=== PATIENT | female | born 1990 | race Caucasian/White ===

== ENCOUNTER 2019-03-12 03:45 | Emergency (ER) | payer MEDICAID ==
[~2019-03-12] VITALS: Ht 172.7 cm; Wt 104.5 kg
[~2019-03-12 03:45] MED LIST: ARIP10TA15 PO; BUPR150T8 PO; CLON-527 PO; EFF37.5XRC PO
[2019-03-12] MEDS ORDERED: ondansetron/PF 4mg/2ml inj IV ONE (03:55)
[2019-03-12] MEDS ORDERED: pantoprazole 40 MG vial IV ONE (03:55)
[2019-03-12] MEDS ORDERED: famotidine/PF 10 mg/ml inj IV ONE (03:55)
[2019-03-12 04:11] LABS: CLARITY,URINE CLEAR (Clear); COLOR,URINE YELLOW (Yellow); GLUCOSE, URINE NEGATIVE (Neg); KETONES,URINE NEGATIVE (Neg); LEUKOCYTE ESTERASE ,URINE NEGATIVE (Neg); NITRITES, URINE NEGATIVE (Neg); OCCULT BLOOD,URINE NEGATIVE (Neg); PROTEIN,URINE NEGATIVE (Neg); URINE HCG NEGATIVE (NEG); UROBILINOGEN,URINE 0.2 E.U/dL (0.2-1.0)
[2019-03-12 04:13] LABS: UA COLLECTION TYPE CLN CATCH MIDSTREAM
[2019-03-12 04:29] LABS: BASOPHILS % (AUTO) 0.3 % (0-1); EOSINOPHILS # (AUTO) 0.2 X10'3 (0-0.9); EOSINOPHILS % (AUTO) 2.6 % (0-6); HEMATOCRIT 43.7 % (35.0-45.0); LYMPHOCYTES % (AUTO) 52.3 % (21-51); MEAN CORPUSCULAR HEMOGLOBIN 30.4 PG (27.0-31.0); MEAN CORPUSCULAR HGB CONC 34.3 g/dL (33.0-36.5); MEAN CORPUSCULAR VOLUME 88.5 FL (78-98); MEAN PLATELET VOLUME 7.7 FL (7.4-10.4); MONOCYTES # (AUTO) 0.6 X10'3 (0-0.9); MONOCYTES % (AUTO) 7.2 % (2-12); NEUTROPHILS # (AUTO) 2.9 X10'3 (1.8-7.7); NEUTROPHILS % (AUTO) 37.6 % (42-75); PLATELET COUNT 219 X10'3 (140-440); RED BLOOD COUNT 4.94 X10'6 (4.20-5.60); RED CELL DISTRIBUTION WIDTH 13.3 % (11.5-14.5); WHITE BLOOD COUNT 7.6 X10'3 (4.5-11.0)
[2019-03-12 04:31] LABS: ALANINE AMINOTRANSFERASE 35 U/L (12-78); ALBUMIN 3.5 G/DL (3.4-5.0); ALBUMIN/GLOBULIN RATIO 1.1 (1.1-1.5); ALKALINE PHOSPHATASE 69 IU/L (46-116); ANION GAP 8 (8-16); ASPARTATE AMINO TRANSFERASE 21 U/L (10-37); BILIRUBIN,TOTAL 0.2 MG/DL (0.1-1.0); BLOOD UREA NITROGEN 10 MG/DL (7-18); CALCIUM 8.7 MG/DL (8.5-10.1); CHLORIDE 104 MMOL/L (99-107); CREATININE 0.91 MG/DL (0.40-0.90); GLUCOSE 101 MG/DL (70-104); LIPASE 339 U/L (73-393); POTASSIUM 3.9 MMOL/L (3.5-5.1); SODIUM 139 MMOL/L (135-145); TOTAL PROTEIN 6.8 G/DL (6.4-8.2); eGFR 75 ML/MIN
[2019-03-12] MEDS ORDERED: OMEP20CA11 PO (04:39)
[2019-03-12] MEDS ORDERED: ONDA4TAB6 PO (04:39)
[2019-03-12 05:03] VITALS: BP 133/94
== END 2019-03-12 05:05 | disposition home or self-care (01) ==
LOC: ER 03:46
DX: R10.13 Epigastric pain (principal); F41.9 Anxiety disorder, unspecified; F32.9 Major depressive disorder, single episode, unspecified; F17.200 Nicotine dependence, unspecified, uncomplicated; F12.90 Cannabis use, unspecified, uncomplicated; Z98.890 Other specified postprocedural states; Z56.0 Unemployment, unspecified; Z79.899 Other long term (current) drug therapy
CPT/HCPCS: 36415; 80053; 81003; 81025; 83690; 85025; 96374; 96375; 99283; C9113; J2405; J3490

== ENCOUNTER 2019-11-01 11:15 | Emergency (ER) | payer MEDICAID ==
[~2019-11-01] VITALS: Ht 172.7 cm; Wt 102.3 kg
[~2019-11-01 11:15] MED LIST changes: +OMEP20CA15 PO; +ONDA4TAB6 PO
--- NOTE | 2019-11-01 11:54 | NUR ---
Patient up to bathroom at this time to obtain UA sample. Gait steady, balanced, no signs of distress noted.
[2019-11-01 12:22] LABS: BASOPHILS % (AUTO) 0.6 % (0-1); EOSINOPHILS # (AUTO) 0.1 X10'3 (0-0.9); EOSINOPHILS % (AUTO) 1.4 % (0-6); HEMATOCRIT 44.9 % (35.0-45.0); HEMOGLOBIN 15.3 g/dl (12.0-16.0); LYMPHOCYTES # (AUTO) 2.8 X10'3 (1.1-4.8); LYMPHOCYTES % (AUTO) 33.8 % (21-51); MEAN CORPUSCULAR HEMOGLOBIN 29.4 PG (27.0-31.0); MEAN CORPUSCULAR VOLUME 86.6 FL (78-98); MEAN PLATELET VOLUME 7.3 FL (7.4-10.4); MONOCYTES # (AUTO) 0.6 X10'3 (0-0.9); MONOCYTES % (AUTO) 7.2 % (2-12); NEUTROPHILS # (AUTO) 4.7 X10'3 (1.8-7.7); PLATELET COUNT 235 X10'3 (140-440); RED BLOOD COUNT 5.19 X10'6 (4.20-5.60); RED CELL DISTRIBUTION WIDTH 14.7 % (11.5-14.5); WHITE BLOOD COUNT 8.2 X10'3 (4.5-11.0)
[2019-11-01 12:26] LABS: CLARITY,URINE SLIGHTLY CLOUDY (Clear); COLOR,URINE YELLOW (Yellow); GLUCOSE, URINE NEGATIVE (Neg); KETONES,URINE NEGATIVE (Neg); LEUKOCYTE ESTERASE ,URINE NEGATIVE (Neg); NITRITES, URINE NEGATIVE (Neg); OCCULT BLOOD,URINE NEGATIVE (Neg); PROTEIN,URINE NEGATIVE (Neg); UROBILINOGEN,URINE 0.2 E.U/dL (0.2-1.0)
[2019-11-01 12:27] LABS: UA COLLECTION TYPE CLN CATCH MIDSTREAM; URINE HCG NEGATIVE (NEG)
[2019-11-01 12:36] LABS: HYALINE CASTS 0-3 /LPF (NEGATIVE); MUCUS STRANDS FEW /LPF (Neg); SQUAMOUS EPITHELIAL CELL,UR MODERATE /LPF (FEW)
[2019-11-01 12:36] LABS: ALANINE AMINOTRANSFERASE 28 U/L (12-78); ALBUMIN 3.8 G/DL (3.4-5.0); ALKALINE PHOSPHATASE 68 IU/L (46-116); ANION GAP 11 (8-16); ASPARTATE AMINO TRANSFERASE 19 U/L (10-37); BILIRUBIN,TOTAL 0.3 MG/DL (0.1-1.0); BLOOD UREA NITROGEN 10 MG/DL (7-18); BUN/CREATININE RATIO 9.8 (6.6-38.0); CALCIUM 9.3 MG/DL (8.5-10.1); CHLORIDE 106 MMOL/L (99-107); CREATININE 1.02 MG/DL (0.40-0.90); GLUCOSE 92 MG/DL (70-104); LIPASE 577 U/L (73-393); POTASSIUM 4.2 MMOL/L (3.5-5.1); SODIUM 141 MMOL/L (135-145); TOTAL PROTEIN 7.6 G/DL (6.4-8.2); eGFR 65 ML/MIN
[2019-11-01 12:37] LABS: BACTERIA,URINE 1+ /HPF (Neg); RBC,URINE 0-2 /HPF (0-2); WBC,URINE 0-4 /HPF (0-4)
[2019-11-01] MEDS ORDERED: ondansetron/PF 4mg/2ml inj IV ONE (12:45)
[2019-11-01] MEDS ORDERED: normal saline 1000ML IV soln IVB ONE (12:45)
[2019-11-01] MEDS ORDERED: proCHLORperazine 10 MG/2 ml inj IV ONE (12:55)
[2019-11-01] MEDS ORDERED: PROC-8 PO (13:37)
[2019-11-01 14:04] VITALS: BP 104/59
== END 2019-11-01 14:09 | disposition home or self-care (01) ==
LOC: ER 11:16
DX: R10.9 Unspecified abdominal pain (principal); R11.2 Nausea with vomiting, unspecified; R19.7 Diarrhea, unspecified; F41.9 Anxiety disorder, unspecified; F32.9 Major depressive disorder, single episode, unspecified; F12.90 Cannabis use, unspecified, uncomplicated; Z98.890 Other specified postprocedural states; Z56.0 Unemployment, unspecified; Z79.899 Other long term (current) drug therapy
CPT/HCPCS: 36415; 80053; 81001; 81025; 83690; 85025; 96361; 96374; 99285; J0780; J7030

== ENCOUNTER 2019-11-21 05:16 | Emergency (ER) | payer MEDICAID ==
[~2019-11-21] VITALS: Ht 172.7 cm; Wt 100.9 kg
[~2019-11-21 05:16] MED LIST changes: +PROC-8 PO
[2019-11-21] MEDS ORDERED: morphine 4 MG/ML inj SYRINge IV ONE (05:40)
[2019-11-21] MEDS ORDERED: ondansetron/PF 4mg/2ml inj IV ONE (05:40)
[2019-11-21] MEDS ORDERED: famotidine/PF 10 mg/ml inj IV ONE (05:40)
[2019-11-21 06:00] LABS: BASOPHILS # (AUTO) 0.1 X10'3 (0-0.2); BASOPHILS % (AUTO) 0.7 % (0-1); EOSINOPHILS # (AUTO) 0.2 X10'3 (0-0.9); EOSINOPHILS % (AUTO) 2.1 % (0-6); HEMATOCRIT 42.4 % (35.0-45.0); HEMOGLOBIN 14.4 g/dl (12.0-16.0); LYMPHOCYTES # (AUTO) 3.8 X10'3 (1.1-4.8); LYMPHOCYTES % (AUTO) 50.2 % (21-51); MEAN CORPUSCULAR HEMOGLOBIN 29.5 PG (27.0-31.0); MEAN CORPUSCULAR VOLUME 86.9 FL (78-98); MEAN PLATELET VOLUME 7.6 FL (7.4-10.4); MONOCYTES # (AUTO) 0.5 X10'3 (0-0.9); MONOCYTES % (AUTO) 7.3 % (2-12); NEUTROPHILS % (AUTO) 39.7 % (42-75); PLATELET COUNT 264 X10'3 (140-440); RED BLOOD COUNT 4.88 X10'6 (4.20-5.60); WHITE BLOOD COUNT 7.5 X10'3 (4.5-11.0)
[2019-11-21 06:18] LABS: ALANINE AMINOTRANSFERASE 32 U/L (12-78); ALBUMIN 3.5 G/DL (3.4-5.0); ALBUMIN/GLOBULIN RATIO 1.1 (1.1-1.5); ALKALINE PHOSPHATASE 55 IU/L (46-116); ANION GAP 9 (8-16); ASPARTATE AMINO TRANSFERASE 23 U/L (10-37); BILIRUBIN,TOTAL 0.2 MG/DL (0.1-1.0); BLOOD UREA NITROGEN 10 MG/DL (7-18); BUN/CREATININE RATIO 11.4 (6.6-38.0); CALCIUM 8.2 MG/DL (8.5-10.1); CHLORIDE 105 MMOL/L (99-107); CREATININE 0.88 MG/DL (0.40-0.90); LIPASE 542 U/L (73-393); SODIUM 138 MMOL/L (135-145); TOTAL PROTEIN 6.7 G/DL (6.4-8.2); eGFR 77 ML/MIN
[2019-11-21 06:22] LABS: GLUCOSE 133 MG/DL (70-104); POTASSIUM 3.8 MMOL/L (3.5-5.1)
[2019-11-21 06:47] LABS: URINE HCG NEGATIVE (NEG)
[2019-11-21 06:49] LABS: CLARITY,URINE CLEAR (Clear); COLOR,URINE YELLOW (Yellow); GLUCOSE, URINE NEGATIVE (Neg); KETONES,URINE NEGATIVE (Neg); LEUKOCYTE ESTERASE ,URINE NEGATIVE (Neg); NITRITES, URINE NEGATIVE (Neg); OCCULT BLOOD,URINE NEGATIVE (Neg); PH,URINE 5.5 (4.8-8.0); PROTEIN,URINE NEGATIVE (Neg); UROBILINOGEN,URINE 0.2 E.U/dL (0.2-1.0)
[2019-11-21 06:50] LABS: UA COLLECTION TYPE CLN CATCH MIDSTREAM
[2019-11-21 07:30] VITALS: BP 124/80
== END 2019-11-21 07:30 | disposition home or self-care (01) ==
LOC: ER 05:17
DX: K80.20 Calculus of gallbladder without cholecystitis without obstruction (principal); F41.9 Anxiety disorder, unspecified; F32.9 Major depressive disorder, single episode, unspecified; F12.90 Cannabis use, unspecified, uncomplicated; Z72.89 Other problems related to lifestyle; Z98.890 Other specified postprocedural states; Z56.0 Unemployment, unspecified; Z79.899 Other long term (current) drug therapy
CPT/HCPCS: 36415; 76700; 80053; 81003; 81025; 83690; 85025; 96374; 96375; 99284; J2270; J2405; J3490

== ENCOUNTER 2019-11-28 16:54 | Inpatient (IN) | payer MEDICAID ==
[~2019-11-28] VITALS: Ht 172.7 cm; Wt 107.0 kg
[2019-11-28 18:01] LABS: BASOPHILS % (AUTO) 0.3 % (0-1); EOSINOPHILS # (AUTO) 0.2 X10'3 (0-0.9); EOSINOPHILS % (AUTO) 1.6 % (0-6); HEMATOCRIT 43.2 % (35.0-45.0); HEMOGLOBIN 14.6 g/dl (12.0-16.0); LYMPHOCYTES % (AUTO) 28.3 % (21-51); MEAN CORPUSCULAR HEMOGLOBIN 28.9 PG (27.0-31.0); MEAN CORPUSCULAR HGB CONC 33.8 g/dL (33.0-36.5); MEAN CORPUSCULAR VOLUME 85.6 FL (78-98); MEAN PLATELET VOLUME 7.1 FL (7.4-10.4); MONOCYTES # (AUTO) 0.7 X10'3 (0-0.9); MONOCYTES % (AUTO) 6.8 % (2-12); NEUTROPHILS # (AUTO) 6.8 X10'3 (1.8-7.7); PLATELET COUNT 265 X10'3 (140-440); RED BLOOD COUNT 5.05 X10'6 (4.20-5.60); RED CELL DISTRIBUTION WIDTH 13.7 % (11.5-14.5); WHITE BLOOD COUNT 10.8 X10'3 (4.5-11.0)
[2019-11-28 18:20] LABS: ALANINE AMINOTRANSFERASE 36 U/L (12-78); ALBUMIN 3.8 G/DL (3.4-5.0); ALBUMIN/GLOBULIN RATIO 1.1 (1.1-1.5); ALKALINE PHOSPHATASE 69 IU/L (46-116); ANION GAP 10 (8-16); ASPARTATE AMINO TRANSFERASE 17 U/L (10-37); BILIRUBIN,TOTAL 0.2 MG/DL (0.1-1.0); BLOOD UREA NITROGEN 9 MG/DL (7-18); BUN/CREATININE RATIO 9.9 (6.6-38.0); CALCIUM 8.9 MG/DL (8.5-10.1); CHLORIDE 104 MMOL/L (99-107); CREATININE 0.91 MG/DL (0.40-0.90); GLUCOSE 97 MG/DL (70-104); LIPASE 741 U/L (73-393); POTASSIUM 3.5 MMOL/L (3.5-5.1); SODIUM 138 MMOL/L (135-145); TOTAL CARBON DIOXIDE 23.9 MMOL/L (24-32); TOTAL PROTEIN 7.4 G/DL (6.4-8.2); eGFR 74 ML/MIN
[2019-11-28] MEDS ORDERED: normal saline 1000ml 1,000 ML IV ONE (18:25)
[2019-11-28] MEDS ORDERED: ondansetron/PF 4mg/2ml inj IV ONE (18:25)
[2019-11-28] MEDS ORDERED: ketorolac trometh. 30mg/ml inj. IV ONE (19:05)
[2019-11-28] MEDS ORDERED: temazepam 15mg capsule PO PRN (21:00)
[2019-11-28] MEDS ORDERED: mag hydrox/Alum hydrox/simeth 30ml oral suspension PO PRN (21:55)
[2019-11-28] MEDS ORDERED: bisacodyl 10mg suppository rectal RC PRN (21:55)
[2019-11-28] MEDS ORDERED: acetaminophen 325mg tablet PO PRN ×2 (21:55)
[2019-11-28] MEDS ORDERED: magnesium Cl slow-release 64mg tablet PO PRN (21:55)
[2019-11-28] MEDS ORDERED: potassium CL 10mEq/100ml bag 100 ML IV PRN ×2 (21:55)
[2019-11-28] MEDS ORDERED: magnesium 2GM in 50ml NS 50 ML IV PRN (21:55)
[2019-11-28] MEDS ORDERED: acetaminophen 650mg rectal suppository RC PRN (21:55)
[2019-11-28] MEDS ORDERED: magnesium hydroxide 30ml (MOM) UD suspension PO PRN (21:55)
[2019-11-28] MEDS ORDERED: potassium Cl 20 mEq SR tablet PO PRN ×2 (21:55)
[2019-11-28] MEDS ORDERED: HYDROcodone/acetaminophen 5mg/325mg tablet PO PRN (21:55)
[2019-11-28] MEDS ORDERED: magnesium 4gm in 100ml NS 100 ML IV PRN (21:55)
[2019-11-28] MEDS ORDERED: HYDROmorphone inj. 0.5 MG/0.5 ML DISP.SYRIN IV PRN (21:55)
--- NOTE | 2019-11-28 22:14 | NUR ---
ADMITTION ORDERS WRITTEN AND DR. SÁNCHEZ AT BEDSIDE NOW. PT REQUESTS PAIN MEDS FOR PAIN OF 10 TO HER LEFT MID AND UPPER BACK.
--- NOTE | 2019-11-28 22:30 | NUR ---
Patient in room [facility]. I have received report from KORINA Hillman who had received report from LAURA Alcantara RN and had the opportunity to ask questions and assume patient care.
[2019-11-28 22:37] LABS: PARTIAL THROMBOPLASTIN TIME 27 SECONDS (22-32)
[2019-11-28 22:45] VITALS: BP 120/78
[2019-11-28] MEDS: normal saline 1000ml 1,000 ML IV SCH (22:45)
[2019-11-28] MEDS: HYDROmorphone 1 mg/ml syringe IV PRN (22:45)
--- NOTE | 2019-11-28 22:45 | NUR ---
Pt arrived to floor and immediately needed to use restroom. VSS, up ad joseph. c/o 11/20 pain.
[2019-11-28 23:11] LABS: URINE HCG NEGATIVE (NEG)
[2019-11-28 23:12] LABS: COLOR,URINE YELLOW (Yellow); GLUCOSE, URINE NEGATIVE (Neg); KETONES,URINE NEGATIVE (Neg); LEUKOCYTE ESTERASE ,URINE TRACE (Neg); NITRITES, URINE NEGATIVE (Neg); OCCULT BLOOD,URINE NEGATIVE (Neg); PROTEIN,URINE NEGATIVE (Neg); UROBILINOGEN,URINE 0.2 E.U/dL (0.2-1.0)
[2019-11-28 23:13] LABS: CLARITY,URINE SLIGHTLY CLOUDY (Clear); UA COLLECTION TYPE OTHER
[2019-11-28 23:20] LABS: BACTERIA,URINE FEW /HPF (Neg); MUCUS STRANDS FEW /LPF (Neg); RBC,URINE 0-2 /HPF (0-2); SQUAMOUS EPITHELIAL CELL,UR MODERATE /LPF (FEW)
[2019-11-28] MEDS ORDERED: TRAZ-256 PO (23:23)
[2019-11-28] MEDS ORDERED: SERT100T10 PO (23:23)
[2019-11-28] MEDS ORDERED: GABA600T13 PO (23:23)
[2019-11-28] MEDS ORDERED: PROC-8 PO (23:46)
[2019-11-28] MEDS: ondansetron/PF 4mg/2ml inj IV PRN (23:55)
[2019-11-29] VITALS (24 sets, daily range): BP systolic 93–139; BP diastolic 58–89
[2019-11-29] MEDS: HYDROmorphone 1 mg/ml syringe IV PRN ×4 (02:43→21:23)
[2019-11-29] MEDS: metoclopramide 5 mg/ml inj IV PRN ×2 (02:43→09:18)
[2019-11-29] MEDS: ondansetron/PF 4mg/2ml inj IV PRN ×2 (05:48→21:23)
[2019-11-29 06:03] LABS: BASOPHILS % (AUTO) 0.3 % (0-1); EOSINOPHILS # (AUTO) 0.2 X10'3 (0-0.9); EOSINOPHILS % (AUTO) 1.8 % (0-6); HEMATOCRIT 41.9 % (35.0-45.0); HEMOGLOBIN 13.9 g/dl (12.0-16.0); LYMPHOCYTES # (AUTO) 3.8 X10'3 (1.1-4.8); LYMPHOCYTES % (AUTO) 41.6 % (21-51); MEAN CORPUSCULAR HEMOGLOBIN 28.7 PG (27.0-31.0); MEAN CORPUSCULAR HGB CONC 33.1 g/dL (33.0-36.5); MEAN CORPUSCULAR VOLUME 86.5 FL (78-98); MEAN PLATELET VOLUME 7.4 FL (7.4-10.4); MONOCYTES # (AUTO) 0.6 X10'3 (0-0.9); MONOCYTES % (AUTO) 6.4 % (2-12); NEUTROPHILS # (AUTO) 4.5 X10'3 (1.8-7.7); NEUTROPHILS % (AUTO) 49.9 % (42-75); PLATELET COUNT 247 X10'3 (140-440); RED BLOOD COUNT 4.85 X10'6 (4.20-5.60); RED CELL DISTRIBUTION WIDTH 14.5 % (11.5-14.5); WHITE BLOOD COUNT 9.1 X10'3 (4.5-11.0)
[2019-11-29 06:22] LABS: ALANINE AMINOTRANSFERASE 30 U/L (12-78); ALBUMIN 3.4 G/DL (3.4-5.0); ALBUMIN/GLOBULIN RATIO 1.1 (1.1-1.5); ALKALINE PHOSPHATASE 60 IU/L (46-116); ANION GAP 9 (8-16); ASPARTATE AMINO TRANSFERASE 17 U/L (10-37); BILIRUBIN,TOTAL 0.3 MG/DL (0.1-1.0); BLOOD UREA NITROGEN 8 MG/DL (7-18); CALCIUM 8.3 MG/DL (8.5-10.1); CHLORIDE 107 MMOL/L (99-107); GLUCOSE 95 MG/DL (70-104); MAGNESIUM 1.9 MG/DL (1.5-2.4); POTASSIUM 3.7 MMOL/L (3.5-5.1); SODIUM 140 MMOL/L (135-145); TOTAL CARBON DIOXIDE 24.4 MMOL/L (24-32); TOTAL PROTEIN 6.6 G/DL (6.4-8.2); eGFR 67 ML/MIN
--- NOTE | 2019-11-29 06:25 | NUR ---
Problems reprioritized. Patient report given, questions answered & plan of care reviewed with KORINA Ahn.
--- NOTE | 2019-11-29 06:46 | NUR ---
Patient in room [facility]. I have received report from Olamide El RN and had the opportunity to ask questions and assume patient care.
[2019-11-29] MEDS: K and/or MAG REPLACEMENT MC SCH ×2 (08:00→20:00)
[2019-11-29] MEDS: normal saline 1000ml 1,000 ML IV SCH ×2 (08:04→17:55)
[2019-11-29] MEDS ORDERED: nicotine 14mg patch - 24hr TD ONE (09:05)
[2019-11-29] MEDS: clonazePAM 1mg tablet PO PRN ×2 (09:13→22:47)
--- NOTE | 2019-11-29 11:21 | NUR ---
Malnutrition consult: Pt reports 14-23 lb wt loss with decreased appetite per malnutrition risk screen with RN. Pt with documented wt hx of 100-102 kg from this year, current scaled weight is 107 kg (168% IBW). Unable to assess PO intake at this time as pt currently NPO. Pt presented with c/o RUQ abdominal pain, admit with gallstone pancreatitis. Likely pt with some fluctuations in appetite and PO intake secondary to pain. Pt with no documented decrease in muscle strength or edema. Pt appears well developed, well nourished per H&P. Pt currently lacks a minimum of two criteria for malnutrition. Will continue to follow. Addendum: 11/29/19 at [address] Amended: Links added.
[2019-11-29] MEDS ORDERED: ringers solution, lacted 1,000 ML IV SCH (13:21)
[2019-11-29] MEDS ORDERED: hydrALAZINE 20mg/ml inj. IV PRN (13:25)
[2019-11-29] MEDS ORDERED: fentaNYL/PF 50MCG/1 ML 2ML syringe IV PRN ×2 (13:25)
[2019-11-29] MEDS ORDERED: labetalol 20mg/4ml (5mg/ml) syringe IV PRN (13:25)
[2019-11-29] MEDS ORDERED: morphine 4 MG/ML inj SYRINge IV PRN (13:25)
[2019-11-29] MEDS ORDERED: morphine 2 MG/ML inj. syringe IV PRN (13:25)
[2019-11-29] MEDS ORDERED: ondansetron/PF 4mg/2ml inj IV PRN ×2 (13:25→16:45)
[2019-11-29] MEDS ORDERED: ceFOXitin 2GM-NS 100mL ADDvant 100 ML IV ONE ×2 (14:00→14:45)
--- NOTE | 2019-11-29 14:22 | NUR ---
Patient down to OR via bed accompanied by x2 OR specimen transporter.
[2019-11-29] MEDS ORDERED: ceFOXitin sod/dextrose 2g/50ml 50 ML IV ONE (14:25)
[2019-11-29] MEDS ORDERED: ceFAZolin 1000mg inj ONE (14:50)
[2019-11-29] MEDS ORDERED: BUPIVAcaine/PF 2.5 mg/ml (0.25%) 30ml vial ONE (14:50)
--- NOTE | 2019-11-29 15:00 | NUR ---
patient seen by Dr Ko is for surgery at 1500hrs. preop check list done.
[2019-11-29] MEDS ORDERED: sevoflurane 250ml liquid IH ONE (15:18)
[2019-11-29] MEDS ORDERED: midazolam 2 mg/2 ml injection ONE (15:24)
[2019-11-29] MEDS ORDERED: fentaNYL /PF 50mcg/ml 5ml ampule ONE (15:27)
[2019-11-29] MEDS ORDERED: LIDOcaine 2% 5ml jelly ONE (15:28)
[2019-11-29] MEDS ORDERED: ceFOXitin 2GM-NS 50mL ADDVANT. 50 ML IV ONE (15:40)
[2019-11-29] MEDS ORDERED: ondansetron/PF 4mg/2ml inj ONE (15:46)
[2019-11-29] MEDS ORDERED: propofol inj 20 ML IV ONE (15:46)
[2019-11-29] MEDS ORDERED: rocuronium 10mg/ml inj IV ONE (15:46)
[2019-11-29] MEDS ORDERED: dexamethasone sod phosphate 4mg/ml inj. ONE (15:46)
[2019-11-29] MEDS ORDERED: LIDOcaine 2% (20mg/ml) 5ml vial ONE (15:46)
[2019-11-29] MEDS ORDERED: famotidine/PF 10 mg/ml inj IV ONE (15:47)
[2019-11-29] MEDS ORDERED: glycopyrrolate 0.2mg/ml inj ONE (16:26)
[2019-11-29] MEDS ORDERED: neostigmine methylsulfate 1 MG/ML 10ml vial ONE (16:26)
[2019-11-29] MEDS ORDERED: HYDROcodone/acetaminophen 10/325mg tab PO PRN (16:45)
[2019-11-29] MEDS ORDERED: sugammadex 200mg/2ml injection IV ONE (16:47)
[2019-11-29] MEDS ORDERED: morphine 10mg/ml inj. ONE (16:51)
--- NOTE | 2019-11-29 16:59 | NUR ---
Received from OR via BED, accompanied by Anesthesiologist DR ASKEW and report given by Anesthesiologist. PT DROWSY, ABDOMEN W/3 LAP SITES W/BANDAIDS CDI. Addendum: 11/29/19 at 1711 by Alisia Lewis RN Amended: Links added.
[2019-11-29] MEDS ORDERED: acetaminophen 1,000mg/100ml IV 100 ML IV PRN (17:00)
--- NOTE | 2019-11-29 17:57 | NUR ---
Received report from Alisia HUI in recovery patient will be coming back to floor after report.
--- NOTE | 2019-11-29 18:00 | NUR ---
Problems reprioritized. Patient report given, questions answered & plan of care reviewed with BOZENA El RN.
--- NOTE | 2019-11-29 18:17 | NUR ---
Patient in room [facility]. I have received report from KORINA Ahn and had the opportunity to ask questions and assume patient care.
--- NOTE | 2019-11-29 18:59 | NUR ---
PT UP TO BATHROOM FOR VOID, STABLE ON FEET, Report called to receiving nurse. Transferred via BED, NO Belongings, RECEIVING RN AT BEDSIDE TO RECEIVE PT, BLL, CALL LIGHT GIVEN, SIDE RAILS UP X 2. Special Issues communicated to receiving nurse. YES. Addendum: 11/29/19 at 1910 by Alisia Lewis RN Amended: Links added.
--- NOTE | 2019-11-29 19:00 | NUR ---
Pt arrived to floor on bed, patient immediately got up to use restroom. VSS, assessment preformed. 4 lap sites, no drainage. Pt immediately called family. States pain 12/21. RN from recovery states "just received morphine prior to bringing up". Will continue to assess.
--- NOTE | 2019-11-29 20:58 | NUR ---
Pt states pain is 7/10, BP has significantly decreased to SBP 114. Morphine given just 1.5 hours prior. Stated I do not want to give dilaudid at this time, would be okay to give [place] for pain. Pt refusing at this time. Will continue to monitor.
--- NOTE | 2019-11-29 22:55 | NUR ---
Pt states she has passed gas. Bowel sounds still hypoactive. Anxious to take walk and go to sleep. Stated as soon as post op vitals are completed, we will get her going.
[2019-11-29] MEDS: HYDROcodone/acetaminophen 10/325mg tab PO PRN (23:36)
--- NOTE | 2019-11-29 23:49 | NUR ---
Dr. Ornelas on the floor, received order for trazadone as takes at home. Med reconciliation deferred to day time doctor.
[2019-11-30 01:22] VITALS: BP 118/80
[2019-11-30] MEDS: ceFOXitin 1 GM/D5W 50mL IVPB 50 ML IV SCH ×2 (01:27→09:07)
[2019-11-30] MEDS: HYDROmorphone 1 mg/ml syringe IV PRN ×2 (01:27→06:07)
[2019-11-30] MEDS: normal saline 1000ml 1,000 ML IV SCH (02:08)
[2019-11-30] MEDS: HYDROcodone/acetaminophen 10/325mg tab PO PRN (03:18)
[2019-11-30] MEDS: ondansetron/PF 4mg/2ml inj IV PRN (03:54)
[2019-11-30 04:00] VITALS: BP 102/76
[2019-11-30 05:22] LABS: BASOPHILS % (AUTO) 0.2 % (0-1); EOSINOPHILS % (AUTO) 0 % (0-6); HEMATOCRIT 38.9 % (35.0-45.0); HEMOGLOBIN 12.8 g/dl (12.0-16.0); LYMPHOCYTES # (AUTO) 1.6 X10'3 (1.1-4.8); LYMPHOCYTES % (AUTO) 12.5 % (21-51); MEAN CORPUSCULAR HEMOGLOBIN 28.6 PG (27.0-31.0); MEAN CORPUSCULAR HGB CONC 32.8 g/dL (33.0-36.5); MEAN CORPUSCULAR VOLUME 87.1 FL (78-98); MEAN PLATELET VOLUME 7.3 FL (7.4-10.4); MONOCYTES # (AUTO) 0.6 X10'3 (0-0.9); MONOCYTES % (AUTO) 4.5 % (2-12); NEUTROPHILS # (AUTO) 10.9 X10'3 (1.8-7.7); NEUTROPHILS % (AUTO) 82.8 % (42-75); PLATELET COUNT 264 X10'3 (140-440); RED BLOOD COUNT 4.47 X10'6 (4.20-5.60); RED CELL DISTRIBUTION WIDTH 14.2 % (11.5-14.5); WHITE BLOOD COUNT 13.2 X10'3 (4.5-11.0)
[2019-11-30 05:25] LABS: ALANINE AMINOTRANSFERASE 36 U/L (12-78); ALBUMIN 3.1 G/DL (3.4-5.0); ALKALINE PHOSPHATASE 57 IU/L (46-116); ANION GAP 7 (8-16); ASPARTATE AMINO TRANSFERASE 27 U/L (10-37); BILIRUBIN,TOTAL 0.3 MG/DL (0.1-1.0); BLOOD UREA NITROGEN 6 MG/DL (7-18); CALCIUM 8.8 MG/DL (8.5-10.1); CHLORIDE 106 MMOL/L (99-107); GLUCOSE 103 MG/DL (70-104); LIPASE 171 U/L (73-393); MAGNESIUM 1.8 MG/DL (1.5-2.4); POTASSIUM 4.2 MMOL/L (3.5-5.1); SODIUM 138 MMOL/L (135-145); TOTAL CARBON DIOXIDE 25.3 MMOL/L (24-32); TOTAL PROTEIN 6.2 G/DL (6.4-8.2); eGFR 67 ML/MIN
[2019-11-30 06:00] VITALS: BP 117/71
--- NOTE | 2019-11-30 06:20 | NUR ---
Problems reprioritized. Patient report given, questions answered & plan of care reviewed with KORINA Ahn.
--- NOTE | 2019-11-30 07:09 | NUR ---
Patient in room [facility]. I have received report from Olamide El RN and had the opportunity to ask questions and assume patient care.
[2019-11-30] MEDS ORDERED: nicotine 14mg patch - 24hr TD SCH (08:00)
[2019-11-30] MEDS ORDERED: oxyCODONE IR 5mg (immed. release) tablet PO ONE (09:05)
[2019-11-30] MEDS ORDERED: OXYC10TA47 PO (09:18)
--- NOTE | 2019-11-30 12:30 | NUR ---
PATIENT UP AND ABOUT MEDICATED FOR PAIN 11/20 . WITH EFFECT. PATIENT SEEN BY DR PETERS. IS FOR DISCHARGE. ALL DC INSTRUCTIONS GIVEN TO PATIENT. PATIENT APPEARS STABLE FOR DC. DC HOME VIA PRIVATE CAR WITH FRIEND [id number].
[2019-11-30] MEDS ORDERED: traZODone 150mg tablet PO SCH (20:00)
== END 2019-11-30 10:45 | disposition home or self-care (01) | DRG 263 ==
LOC: ER 16:55 → ED HOLD 21:55 → SUR 3N 22:45
PROVIDERS: ADMIT Family Medicine; ATTEND Family Medicine
PROC: 0FT44ZZ Resection of Gallbladder, Percutaneous Endoscopic Approach (ICD-10-PCS; principal; 2019-11-29 15:18)
DX: K85.10 Biliary acute pancreatitis without necrosis or infection (principal); K80.20 Calculus of gallbladder without cholecystitis without obstruction; F17.210 Nicotine dependence, cigarettes, uncomplicated; F32.9 Major depressive disorder, single episode, unspecified; F41.0 Panic disorder [episodic paroxysmal anxiety]; G47.00 Insomnia, unspecified; K82.8 Other specified diseases of gallbladder; Z98.891 History of uterine scar from previous surgery
CPT/HCPCS: 36415; 71045; 76700; 80053; 81001; 81025; 82948; 83690; 83735; 85025; 85610; 85730; 87081; 87088; 99285; A4215; A4618; A7000; C9399; G0378; J0131; J0690; J0694; J1100; J1170; J1885; J2001; J2250; J2270; J2405; J2704; J2710; J2765; J3010; J3490; J7030; J7120

== ENCOUNTER 2020-02-26 11:48 | Emergency (ER) | payer MEDICAID ==
[~2020-02-26] VITALS: Ht 175.3 cm; Wt 101.3 kg
[~2020-02-26 11:48] MED LIST changes: -ARIP10TA15 PO; -BUPR150T8 PO; -EFF37.5XRC PO; +GABA600T13 PO; -OMEP20CA15 PO; -ONDA4TAB6 PO; +OXYC10TA47 PO; +SERT100T10 PO; +TRAZ-256 PO
[2020-02-26] MEDS ORDERED: ketorolac tromethamine 15mg/ml inj. IM ONE (13:25)
[2020-02-26] MEDS ORDERED: orphenadrine citrate 60mg/2ml inj. IM ONE (13:25)
[2020-02-26] MEDS ORDERED: METH-360 PO (13:33)
[2020-02-26] MEDS ORDERED: NAPR-56 PO (13:33)
[2020-02-26 13:46] VITALS: BP 120/73
== END 2020-02-26 13:47 | disposition home or self-care (01) ==
LOC: ER 11:49
DX: M54.9 Dorsalgia, unspecified (principal); G89.29 Other chronic pain; F41.9 Anxiety disorder, unspecified; F32.9 Major depressive disorder, single episode, unspecified; Z98.890 Other specified postprocedural states; Z59.0 Homelessness; Z79.899 Other long term (current) drug therapy
CPT/HCPCS: 96372; 99284; J1885; J2360

== ENCOUNTER 2020-04-16 14:30 | Emergency (ER) | payer MEDICAID ==
[~2020-04-16] VITALS: Ht 175.3 cm; Wt 104.5 kg
[~2020-04-16 14:30] MED LIST changes: +METH-360 PO
[2020-04-16 15:12] VITALS: BP 111/83
== END 2020-04-16 15:44 | disposition left against medical advice (07) ==
LOC: ER 14:30
DX: L08.9 Local infection of the skin and subcutaneous tissue, unspecified (principal); Z53.21 Procedure and treatment not carried out due to patient leaving prior to being seen by health care provider

== ENCOUNTER 2020-04-20 11:29 | Emergency (ER) | payer MEDICAID ==
[~2020-04-20] VITALS: Ht 175.3 cm; Wt 100.0 kg
[2020-04-20 12:57] LABS: CLARITY,URINE CLEAR (Clear); COLOR,URINE YELLOW (Yellow); GLUCOSE, URINE NEGATIVE (Neg); KETONES,URINE NEGATIVE (Neg); LEUKOCYTE ESTERASE ,URINE TRACE (Neg); NITRITES, URINE NEGATIVE (Neg); OCCULT BLOOD,URINE TRACE-INTACT (Neg); PH,URINE 5.5 (4.8-8.0); PROTEIN,URINE NEGATIVE (Neg); UROBILINOGEN,URINE 0.2 E.U/dL (0.2-1.0)
[2020-04-20 13:05] LABS: UA COLLECTION TYPE CLN CATCH MIDSTREAM
[2020-04-20 13:06] LABS: BACTERIA,URINE NONE SEEN /HPF (Neg); MUCUS STRANDS NONE SEEN /LPF (Neg); RBC,URINE 0 /HPF (0-2); SQUAMOUS EPITHELIAL CELL,UR FEW /LPF (FEW); WBC,URINE 0-4 /HPF (0-4)
[2020-04-20] MEDS ORDERED: azithromycin 250mg tablet PO ONE (14:15)
[2020-04-20] MEDS ORDERED: CefTRIAXone 250MG IM Kit w/LIDOcaine IM ONE (14:15)
== END 2020-04-20 14:57 | disposition home or self-care (01) ==
LOC: ER 11:29
DX: J06.9 Acute upper respiratory infection, unspecified (principal); R11.2 Nausea with vomiting, unspecified; R05 Cough; R09.89 Other specified symptoms and signs involving the circulatory and respiratory systems; G89.29 Other chronic pain; F41.9 Anxiety disorder, unspecified; F32.9 Major depressive disorder, single episode, unspecified; F12.90 Cannabis use, unspecified, uncomplicated; Z70.1 Counseling related to patient's sexual behavior and orientation; Z98.890 Other specified postprocedural states; Z72.89 Other problems related to lifestyle; Z56.0 Unemployment, unspecified; Z79.899 Other long term (current) drug therapy
CPT/HCPCS: 36415; 71045; 81001; 87088; 87491; 87591; 96372; 99284; J0696

== ENCOUNTER 2020-04-27 20:44 | Emergency (ER) | payer MEDICAID ==
[~2020-04-27] VITALS: Ht 175.3 cm; Wt 102.3 kg
[2020-04-27 20:58] VITALS: BP 116/75
[2020-04-27 21:43] LABS: BASOPHILS # (AUTO) 0.1 X10'3 (0-0.2); BASOPHILS % (AUTO) 0.9 % (0-1); EOSINOPHILS # (AUTO) 0.2 X10'3 (0-0.9); EOSINOPHILS % (AUTO) 2.9 % (0-6); HEMATOCRIT 41.1 % (35.0-45.0); HEMOGLOBIN 13.9 g/dl (12.0-16.0); LYMPHOCYTES # (AUTO) 3.5 X10'3 (1.1-4.8); LYMPHOCYTES % (AUTO) 46.8 % (21-51); MEAN CORPUSCULAR HEMOGLOBIN 29.8 PG (27.0-31.0); MEAN CORPUSCULAR VOLUME 87.7 FL (78-98); MEAN PLATELET VOLUME 7.3 FL (7.4-10.4); MONOCYTES # (AUTO) 0.5 X10'3 (0-0.9); MONOCYTES % (AUTO) 6.2 % (2-12); NEUTROPHILS # (AUTO) 3.3 X10'3 (1.8-7.7); NEUTROPHILS % (AUTO) 43.2 % (42-75); PLATELET COUNT 278 X10'3 (140-440); RED BLOOD COUNT 4.68 X10'6 (4.20-5.60); RED CELL DISTRIBUTION WIDTH 14.4 % (11.5-14.5); WHITE BLOOD COUNT 7.6 X10'3 (4.5-11.0)
[2020-04-27 21:48] LABS: ALANINE AMINOTRANSFERASE 128 U/L (12-78); ALBUMIN 3.6 G/DL (3.4-5.0); ALBUMIN/GLOBULIN RATIO 1.2 (1.1-1.5); ALKALINE PHOSPHATASE 64 IU/L (46-116); ANION GAP 9 (8-16); ASPARTATE AMINO TRANSFERASE 166 U/L (10-37); BILIRUBIN,TOTAL 0.3 MG/DL (0.1-1.0); BLOOD UREA NITROGEN 12 MG/DL (7-18); BUN/CREATININE RATIO 11.9 (6.6-38.0); CALCIUM 8.1 MG/DL (8.5-10.1); CHLORIDE 103 MMOL/L (99-107); CREATININE 1.01 MG/DL (0.40-0.90); GLUCOSE 114 MG/DL (70-104); LIPASE 232 U/L (73-393); POTASSIUM 3.6 MMOL/L (3.5-5.1); SODIUM 138 MMOL/L (135-145); TOTAL CARBON DIOXIDE 25.6 MMOL/L (24-32); TOTAL PROTEIN 6.7 G/DL (6.4-8.2); eGFR 66 ML/MIN
== END 2020-04-27 22:42 | disposition left against medical advice (07) ==
LOC: ER 20:45
DX: R11.0 Nausea (principal); Z53.21 Procedure and treatment not carried out due to patient leaving prior to being seen by health care provider
CPT/HCPCS: 36415; 80053; 83690; 85025

== ENCOUNTER 2020-04-29 08:32 | Emergency (ER) | payer MEDICAID ==
[~2020-04-29] VITALS: Ht 175.3 cm; Wt 100.0 kg
[2020-04-29 08:43] VITALS: BP 125/86
[2020-04-29 09:44] LABS: CLARITY,URINE CLEAR (Clear); COLOR,URINE YELLOW (Yellow); GLUCOSE, URINE NEGATIVE (Neg); KETONES,URINE NEGATIVE (Neg); LEUKOCYTE ESTERASE ,URINE NEGATIVE (Neg); NITRITES, URINE NEGATIVE (Neg); OCCULT BLOOD,URINE NEGATIVE (Neg); PH,URINE 6.5 (4.8-8.0); PROTEIN,URINE NEGATIVE (Neg); UROBILINOGEN,URINE 0.2 E.U/dL (0.2-1.0)
[2020-04-29 09:46] LABS: BASOPHILS % (AUTO) 0.5 % (0-1); EOSINOPHILS # (AUTO) 0.2 X10'3 (0-0.9); HEMATOCRIT 44.2 % (35.0-45.0); HEMOGLOBIN 14.9 g/dl (12.0-16.0); LYMPHOCYTES # (AUTO) 2.7 X10'3 (1.1-4.8); LYMPHOCYTES % (AUTO) 32.6 % (21-51); MEAN CORPUSCULAR HEMOGLOBIN 29.8 PG (27.0-31.0); MEAN CORPUSCULAR HGB CONC 33.8 g/dL (33.0-36.5); MEAN CORPUSCULAR VOLUME 88.1 FL (78-98); MEAN PLATELET VOLUME 7.2 FL (7.4-10.4); MONOCYTES # (AUTO) 0.5 X10'3 (0-0.9); MONOCYTES % (AUTO) 6.4 % (2-12); NEUTROPHILS # (AUTO) 4.8 X10'3 (1.8-7.7); NEUTROPHILS % (AUTO) 58.5 % (42-75); PLATELET COUNT 296 X10'3 (140-440); RED BLOOD COUNT 5.02 X10'6 (4.20-5.60); RED CELL DISTRIBUTION WIDTH 14.7 % (11.5-14.5); WHITE BLOOD COUNT 8.1 X10'3 (4.5-11.0)
[2020-04-29 09:47] LABS: UA COLLECTION TYPE CLN CATCH MIDSTREAM; URINE HCG NEGATIVE (NEG)
[2020-04-29 09:59] LABS: ALANINE AMINOTRANSFERASE 91 U/L (12-78); ALBUMIN 4.1 G/DL (3.4-5.0); ALBUMIN/GLOBULIN RATIO 1.2 (1.1-1.5); ALKALINE PHOSPHATASE 64 IU/L (46-116); ANION GAP 10 (8-16); ASPARTATE AMINO TRANSFERASE 37 U/L (10-37); BILIRUBIN,TOTAL 0.3 MG/DL (0.1-1.0); BLOOD UREA NITROGEN 12 MG/DL (7-18); BUN/CREATININE RATIO 13.8 (6.6-38.0); CALCIUM 8.8 MG/DL (8.5-10.1); CHLORIDE 104 MMOL/L (99-107); CREATININE 0.87 MG/DL (0.40-0.90); GLUCOSE 102 MG/DL (70-104); LIPASE 196 U/L (73-393); POTASSIUM 4.2 MMOL/L (3.5-5.1); SODIUM 137 MMOL/L (135-145); TOTAL CARBON DIOXIDE 23.5 MMOL/L (24-32); TOTAL PROTEIN 7.6 G/DL (6.4-8.2); eGFR 78 ML/MIN
== END 2020-04-29 11:06 | disposition home or self-care (01) ==
LOC: ER 08:33
DX: R10.31 Right lower quadrant pain (principal); Z20.828 Contact with and (suspected) exposure to other viral communicable diseases; R11.2 Nausea with vomiting, unspecified; R19.7 Diarrhea, unspecified; G89.29 Other chronic pain; F12.90 Cannabis use, unspecified, uncomplicated; Z72.89 Other problems related to lifestyle; Z56.0 Unemployment, unspecified; Z79.899 Other long term (current) drug therapy; Z98.890 Other specified postprocedural states
CPT/HCPCS: 36415; 74176; 80053; 81003; 81025; 83690; 85025; 87635; 99284

== ENCOUNTER 2020-07-25 14:59 | Emergency (ER) | payer MEDICAID ==
[~2020-07-25] VITALS: Ht 172.7 cm; Wt 103.2 kg
[~2020-07-25 14:59] MED LIST changes: +SERT-434 PO; -SERT100T10 PO
[2020-07-25 15:47] LABS: BASOPHILS % (AUTO) 0.5 % (0-1); EOSINOPHILS # (AUTO) 0.3 X10'3 (0-0.9); EOSINOPHILS % (AUTO) 4.2 % (0-6); HEMATOCRIT 43.1 % (35.0-45.0); HEMOGLOBIN 14.3 g/dl (12.0-16.0); LYMPHOCYTES # (AUTO) 2.9 X10'3 (1.1-4.8); LYMPHOCYTES % (AUTO) 36.4 % (21-51); MEAN CORPUSCULAR HEMOGLOBIN 29.1 PG (27.0-31.0); MEAN CORPUSCULAR HGB CONC 33.2 g/dL (33.0-36.5); MEAN CORPUSCULAR VOLUME 87.7 FL (78-98); MEAN PLATELET VOLUME 7.1 FL (7.4-10.4); MONOCYTES # (AUTO) 0.5 X10'3 (0-0.9); MONOCYTES % (AUTO) 6.1 % (2-12); NEUTROPHILS # (AUTO) 4.3 X10'3 (1.8-7.7); NEUTROPHILS % (AUTO) 52.8 % (42-75); PLATELET COUNT 260 X10'3 (140-440); RED BLOOD COUNT 4.92 X10'6 (4.20-5.60); RED CELL DISTRIBUTION WIDTH 15.1 % (11.5-14.5); WHITE BLOOD COUNT 8.1 X10'3 (4.5-11.0)
[2020-07-25 16:02] LABS: ALANINE AMINOTRANSFERASE 56 U/L (12-78); ALBUMIN 3.6 G/DL (3.4-5.0); ALBUMIN/GLOBULIN RATIO 1.1 (1.1-1.5); ALKALINE PHOSPHATASE 55 IU/L (46-116); ANION GAP 8 (8-16); ASPARTATE AMINO TRANSFERASE 30 U/L (10-37); BILIRUBIN,TOTAL 0.2 MG/DL (0.1-1.0); BLOOD UREA NITROGEN 12 MG/DL (7-18); BUN/CREATININE RATIO 14.6 (6.6-38.0); CALCIUM 8.3 MG/DL (8.5-10.1); CHLORIDE 105 MMOL/L (99-107); CREATININE 0.82 MG/DL (0.40-0.90); GLUCOSE 99 MG/DL (70-104); LIPASE 182 U/L (73-393); POTASSIUM 3.9 MMOL/L (3.5-5.1); SODIUM 139 MMOL/L (135-145); TOTAL CARBON DIOXIDE 25.8 MMOL/L (24-32); TOTAL PROTEIN 6.9 G/DL (6.4-8.2); eGFR 84 ML/MIN
[2020-07-25 16:05] LABS: CLARITY,URINE SLIGHTLY CLOUDY (Clear); COLOR,URINE YELLOW (Yellow); GLUCOSE, URINE NEGATIVE (Neg); KETONES,URINE NEGATIVE (Neg); LEUKOCYTE ESTERASE ,URINE NEGATIVE (Neg); NITRITES, URINE NEGATIVE (Neg); OCCULT BLOOD,URINE NEGATIVE (Neg); PROTEIN,URINE NEGATIVE (Neg); UROBILINOGEN,URINE 0.2 E.U/dL (0.2-1.0)
[2020-07-25 16:08] LABS: URINE HCG NEGATIVE (NEG)
[2020-07-25 16:20] LABS: SQUAMOUS EPITHELIAL CELL,UR MODERATE /LPF (FEW); UA COLLECTION TYPE CLN CATCH MIDSTREAM
[2020-07-25 16:21] LABS: BACTERIA,URINE 1+ /HPF (Neg); RBC,URINE 0-2 /HPF (0-2); WBC,URINE 0-4 /HPF (0-4)
[2020-07-25] MEDS ORDERED: sucralfate 1gm/10ml UD suspension PO STA (19:53)
[2020-07-25] MEDS ORDERED: mag hydrox/Alum hydrox/simeth 30ml oral suspension PO ONE (19:55)
[2020-07-25] MEDS ORDERED: LIDOcaine Viscous 15ml cup MM ONE (19:55)
[2020-07-25] MEDS ORDERED: SUCR1TAB34 PO (20:10)
[2020-07-25 20:13] VITALS: BP 130/73
== END 2020-07-25 20:15 | disposition home or self-care (01) ==
LOC: ER 14:59
DX: R10.31 Right lower quadrant pain (principal); R11.2 Nausea with vomiting, unspecified; G89.29 Other chronic pain; F41.9 Anxiety disorder, unspecified; F32.9 Major depressive disorder, single episode, unspecified; F12.90 Cannabis use, unspecified, uncomplicated; Z72.89 Other problems related to lifestyle; Z98.890 Other specified postprocedural states; Z56.0 Unemployment, unspecified; Z79.899 Other long term (current) drug therapy
CPT/HCPCS: 36415; 80053; 81001; 81025; 83690; 85025; 99283

== ENCOUNTER 2020-09-02 11:22 | Emergency (ER) | payer MEDICAID ==
[~2020-09-02] VITALS: Ht 175.3 cm; Wt 102.3 kg
[~2020-09-02 11:22] MED LIST changes: +SUCR1TAB34 PO
[2020-09-02] MEDS ORDERED: HYDROcodone/acetaminophen 5mg/325mg tablet PO ONE (12:15)
[2020-09-02 13:10] VITALS: BP 119/82
[2020-09-02] MEDS ORDERED: HYDR-3965 PO (13:34)
== END 2020-09-02 14:07 | disposition home or self-care (01) ==
LOC: ER 11:23
DX: S00.33XA Contusion of nose, initial encounter (principal); S00.83XA Contusion of other part of head, initial encounter; G89.29 Other chronic pain; M54.9 Dorsalgia, unspecified; F41.9 Anxiety disorder, unspecified; F32.9 Major depressive disorder, single episode, unspecified; Z79.899 Other long term (current) drug therapy; Z88.8 Allergy status to other drugs, medicaments and biological substances; Y04.8XXA Assault by other bodily force, initial encounter; Y93.89 Activity, other specified; Y92.89 Other specified places as the place of occurrence of the external cause; Y99.8 Other external cause status
CPT/HCPCS: 70486; 99284

== ENCOUNTER 2021-08-01 12:03 | Emergency (ER) | payer MEDICAID ==
[~2021-08-01] VITALS: Ht 172.7 cm; Wt 86.4 kg
[2021-08-01 13:22] LABS: URINE HCG NEGATIVE (NEG)
[2021-08-01 13:24] LABS: CLARITY,URINE CLEAR (Clear); COLOR,URINE YELLOW (Yellow); GLUCOSE, URINE NEGATIVE (Neg); KETONES,URINE NEGATIVE (Neg); LEUKOCYTE ESTERASE ,URINE SMALL (Neg); NITRITES, URINE NEGATIVE (Neg); OCCULT BLOOD,URINE NEGATIVE (Neg); PROTEIN,URINE NEGATIVE (Neg); UROBILINOGEN,URINE 0.2 E.U/dL (0.2-1.0)
[2021-08-01] MEDS ORDERED: CefTRIAXone 1000mg IM Kit (w/lidocaine diluent) IM STA (13:24)
[2021-08-01] MEDS ORDERED: azithromycin 250mg tablet PO ONE (13:25)
[2021-08-01 13:30] LABS: UA COLLECTION TYPE CLN CATCH MIDSTREAM
[2021-08-01 13:35] LABS: BACTERIA,URINE FEW /HPF (Neg); MUCUS STRANDS FEW /LPF (Neg); RBC,URINE NONE SEEN /HPF (0-2); SQUAMOUS EPITHELIAL CELL,UR MODERATE /LPF (FEW)
[2021-08-01 13:50] VITALS: BP 140/100
== END 2021-08-01 13:52 | disposition home or self-care (01) ==
LOC: ER 12:04
DX: A64 Unspecified sexually transmitted disease (principal); J02.9 Acute pharyngitis, unspecified; G89.29 Other chronic pain; F12.90 Cannabis use, unspecified, uncomplicated; Z72.89 Other problems related to lifestyle; Z56.0 Unemployment, unspecified; Z98.891 History of uterine scar from previous surgery; Z79.899 Other long term (current) drug therapy; Z88.8 Allergy status to other drugs, medicaments and biological substances
CPT/HCPCS: 36415; 81001; 81025; 87088; 87491; 87591; 96372; 99283; J0696

== ENCOUNTER 2024-04-15 10:47 | Emergency (ER) | payer BC, MEDICAID ==
[~2024-04-15] VITALS: Ht 175.3 cm; Wt 103.6 kg
[~2024-04-15 10:47] MED LIST changes: +GABA-1405 PO; -GABA600T13 PO
[2024-04-15 10:56] VITALS: BP 140/82; PULSE 87; RESP 16; TEMP 98.6; O2SAT 99
[2024-04-15 11:26] LABS: BASOPHILS # (AUTO) 0.1 X10'3 (0-0.2); BASOPHILS % (AUTO) 0.8 % (0-1); EOSINOPHILS # (AUTO) 0.3 X10'3 (0-0.9); EOSINOPHILS % (AUTO) 4.1 % (0-6); LYMPHOCYTES # (AUTO) 3.3 X10'3 (1.1-4.8); LYMPHOCYTES % (AUTO) 46.9 % (21-51); MEAN CORPUSCULAR HEMOGLOBIN 29.8 PG (27.0-31.0); MEAN CORPUSCULAR VOLUME 87.7 FL (78-98); MEAN PLATELET VOLUME 6.7 FL (7.4-10.4); MONOCYTES # (AUTO) 0.4 X10'3 (0-0.9); MONOCYTES % (AUTO) 6.1 % (2-12); NEUTROPHILS % (AUTO) 42.1 % (42-75); PLATELET COUNT 303 X10'3 (140-440); RED BLOOD COUNT 5.02 X10'6 (4.20-5.60); RED CELL DISTRIBUTION WIDTH 13.9 % (11.5-14.5); WHITE BLOOD COUNT 7.1 X10'3 (4.5-11.0)
[2024-04-15 11:27] LABS: BILIRUBIN,URINE NEGATIVE (Neg); CLARITY,URINE CLEAR (Clear); COLOR,URINE YELLOW (Yellow); GLUCOSE, URINE NEGATIVE (Neg); KETONES,URINE NEGATIVE (Neg); LEUKOCYTE ESTERASE ,URINE NEGATIVE (Neg); NITRITES, URINE NEGATIVE (Neg); OCCULT BLOOD,URINE NEGATIVE (Neg); PH,URINE 5.5 (4.8-8.0); PROTEIN,URINE NEGATIVE (Neg); URINE HCG NEGATIVE (NEG); UROBILINOGEN,URINE 0.2 E.U/dL (0.2-1.0)
[2024-04-15 11:28] LABS: UA COLLECTION TYPE CLN CATCH MIDSTREAM
[2024-04-15 11:43] LABS: ALANINE AMINOTRANSFERASE 31 U/L (12-78); ALBUMIN 3.9 G/DL (3.4-5.0); ALBUMIN/GLOBULIN RATIO 1.2 (1.1-1.5); ALKALINE PHOSPHATASE 55 IU/L (46-116); ANION GAP 7 (8-16); ASPARTATE AMINO TRANSFERASE 19 U/L (10-37); BILIRUBIN,TOTAL 0.3 MG/DL (0.1-1.0); BLOOD UREA NITROGEN 9 MG/DL (7-18); BUN/CREATININE RATIO 10.6 (10.0-20.0); CALCIUM 8.9 MG/DL (8.5-10.1); CHLORIDE 106 MMOL/L (99-107); CREATININE 0.85 MG/DL (0.40-0.90); GLUCOSE 94 MG/DL (70-104); LIPASE 92 U/L (16-77); POTASSIUM 4.3 MMOL/L (3.5-5.1); SODIUM 137 MMOL/L (135-145); TOTAL CARBON DIOXIDE 24.2 MMOL/L (24-32); TOTAL PROTEIN 7.1 G/DL (6.4-8.2); eCRCL 100 ML/MIN; eGFR 78 ML/MIN
== END 2024-04-15 14:45 | disposition home or self-care (01) ==
LOC: ER 10:48
DX: N83.201 Unspecified ovarian cyst, right side (principal); F12.90 Cannabis use, unspecified, uncomplicated; F41.9 Anxiety disorder, unspecified; F32.A Depression, unspecified; Z88.8 Allergy status to other drugs, medicaments and biological substances; Z98.890 Other specified postprocedural states
CPT/HCPCS: 36415; 76856; 80053; 81003; 81025; 83690; 85025; 93976; 99284